=== PATIENT | male | born 1980 | race Caucasian/White ===

== ENCOUNTER 2017-10-08 16:15 | Inpatient (IN) | payer BC ==
[2017-10-08 19:41] LABS: ADD MAN DIFF? NO
[2017-10-08 19:45] LABS: BASOPHIL # 0.1 10^3/ul (0.0-0.1); BASOPHILS % 0.9 % (0.0-2.0); EOSINOPHILS # 0.1 10^3/ul (0.0-0.5); EOSINOPHILS % 1.4 % (0.0-7.0); HEMATOCRIT 44.5 % (42.0-52.0); LYMPHOCYTES # 2.2 10^3/ul (0.8-2.9); LYMPHOCYTES % 25.9 % (15.0-51.0); MEAN CORPUSCULAR HEMOGLOBIN 30.8 pg (29.0-33.0); MEAN CORPUSCULAR HGB CONC 33.7 g/dl (32.0-37.0); MEAN CORPUSCULAR VOLUME 91.4 fl (82.0-101.0); MEAN PLATELET VOLUME 9.5 fl (7.4-10.4); MONOCYTE # 0.4 10^3/ul (0.3-0.9); MONOCYTES % 4.9 % (0.0-11.0); NEUTROPHIL # 5.7 10^3/ul (1.6-7.5); NEUTROPHILS % 66.7 % (39.0-77.0); PLATELET COUNT 257 10^3/UL (140-415); RED BLOOD COUNT 4.87 10^6/ul (4.70-6.10); RED CELL DISTRIBUTION WIDTH 13.1 % (11.5-14.5)
[2017-10-08 19:45] LABS: WHITE BLOOD COUNT 8.6 10^3/ul (4.8-10.8)
[2017-10-08] MEDS: morphine 4 MG/ML VIAL IV (19:56)
[2017-10-08] MEDS: ONDANSETRON 4 MG INJ IV (19:56)
[2017-10-08 20:05] LABS: ALANINE AMINOTRANSFERASE 72 IU/L (13-69); ALBUMIN 4.7 g/dl (3.3-4.9); ALBUMIN/GLOBULIN RATIO 1.23; ALKALINE PHOSPHATASE 97 IU/L (42-121); ANION GAP 17 (8-16); ASPARTATE AMINO TRANSFERASE 75 IU/L (15-46); BILIRUBIN,INDIRECT 0.4 mg/dl (0-1.1); BILIRUBIN,TOTAL 0.4 mg/dl (0.2-1.3); BLOOD UREA NITROGEN 19 mg/dl (7-20); CALCIUM 9.4 mg/dl (8.4-10.2); CARBON DIOXIDE 26 mmol/L (21-31); CHLORIDE 103 mmol/L (97-110); CREATININE 0.78 mg/dl (0.61-1.24); GLUCOSE 105 mg/dl (70-220); INR 0.97; POTASSIUM 4.1 mmol/L (3.5-5.1); SODIUM 142 mmol/L (135-144); TOTAL PROTEIN 8.5 g/dl (6.1-8.1)
[2017-10-08 20:06] LABS: PARTIAL THROMBOPLASTIN TIME 28.1 Sec (25.0-35.0)
[2017-10-08] MEDS ORDERED: ONDANSETRON 4 MG INJ IV (22:30)
[2017-10-08 23:07] LABS: CREATINE KINASE 628 IU/L (23-200)
[2017-10-08 23:20] LABS: CK INDEX 0.7
[2017-10-08 23:26] LABS: CK-MB 4.46 ng/ml (0.0-2.4); TROPONIN-I < 0.012 ng/ml (0.000-0.120)
[2017-10-09] MEDS: HYDROCODONE/APAP (10/325) TAB PO (00:06)
[2017-10-09] MEDS: morphine 2 MG INJ IV ×3 (01:18→12:08)
[2017-10-09 05:35] LABS: ADD MAN DIFF? NO
[2017-10-09 05:43] LABS: WHITE BLOOD COUNT 8.2 10^3/ul (4.8-10.8)
[2017-10-09 05:43] LABS: BASOPHIL # 0.1 10^3/ul (0.0-0.1); BASOPHILS % 1.2 % (0.0-2.0); EOSINOPHILS # 0.3 10^3/ul (0.0-0.5); EOSINOPHILS % 3.1 % (0.0-7.0); HEMATOCRIT 44.4 % (42.0-52.0); HEMOGLOBIN 14.5 g/dl (14.0-18.0); LYMPHOCYTES # 3.6 10^3/ul (0.8-2.9); LYMPHOCYTES % 43.6 % (15.0-51.0); MEAN CORPUSCULAR HGB CONC 32.7 g/dl (32.0-37.0); MEAN CORPUSCULAR VOLUME 94.9 fl (82.0-101.0); MEAN PLATELET VOLUME 9.8 fl (7.4-10.4); MONOCYTE # 0.7 10^3/ul (0.3-0.9); MONOCYTES % 8.4 % (0.0-11.0); NEUTROPHIL # 3.5 10^3/ul (1.6-7.5); NEUTROPHILS % 43.3 % (39.0-77.0); PLATELET COUNT 249 10^3/UL (140-415); RED BLOOD COUNT 4.68 10^6/ul (4.70-6.10); RED CELL DISTRIBUTION WIDTH 13.2 % (11.5-14.5)
[2017-10-09 06:08] LABS: ANION GAP 15 (8-16); BLOOD UREA NITROGEN 19 mg/dl (7-20); CALCIUM 9.6 mg/dl (8.4-10.2); CARBON DIOXIDE 29 mmol/L (21-31); CHLORIDE 104 mmol/L (97-110); CREATININE 0.79 mg/dl (0.61-1.24); GLUCOSE 94 mg/dl (70-220); MAGNESIUM 2.5 mg/dl (1.7-2.5); PHOSPHORUS 4.4 mg/dl (2.5-4.9); POTASSIUM 4.6 mmol/L (3.5-5.1); SODIUM 143 mmol/L (135-144)
[2017-10-09] MEDS ORDERED: SUCCINYLCHOLINE CHLORIDE 100 MG/5 ML SYG IV (07:00)
[2017-10-09] MEDS ORDERED: ROCURONIUM 50 MG INJ (07:00)
[2017-10-09] MEDS: DEXTROSE 5%-0.45% NACL 1,000 ML IV ×2 (09:03→18:00)
[2017-10-09] MEDS ORDERED: morphine LIQ (10 MG/5 ML) CUP PO (16:30)
[2017-10-09] MEDS ORDERED: ROPIVACAINE 0.5 % 30 ML VIAL (21:02)
[2017-10-09] MEDS ORDERED: LIDOCAINE 2% (SDV) 5 ML INJ (21:12)
[2017-10-09] MEDS ORDERED: PROPOFOL 20 ML (21:12)
[2017-10-09] MEDS ORDERED: MIDAZOLAM 1 MG/ML 2 ML INJ ×2 (21:13→21:31)
[2017-10-09] MEDS ORDERED: FENTAnyl 50 MCG/ML VIAL (21:13)
[2017-10-09] MEDS ORDERED: CEFAZOLIN 1 GM INJ (21:37)
[2017-10-09] MEDS ORDERED: DEXAMETHASONE 4 MG/ML 1 ML INJ (21:44)
[2017-10-09] MEDS ORDERED: ONDANSETRON 4 MG INJ (21:44)
[2017-10-09] MEDS ORDERED: FAMOTIDINE 20 MG INJ (21:44)
[2017-10-09] MEDS: POLYMYXIN/BACITRACIN 1L IRRIG (21:49)
[2017-10-09] MEDS: ROPIVACAINE 0.5 % 30 ML VIAL (22:16)
[2017-10-09] MEDS ORDERED: SUGAMMADEX SODIUM 200 MG/2 ML VIAL IV (22:24)
[2017-10-09] MEDS ORDERED: HYDROmorphONE 2 MG/ML SYG (22:29)
[2017-10-09] MEDS: NEOMYC/POLYMYX/BACIT 30 GM OINT (22:43)
[2017-10-09] MEDS ORDERED: HYDROmorphONE (0.2 MG/ML) 10ML SYG IV ×2 (23:00)
[2017-10-09] MEDS ORDERED: MAGNESIUM HYDROXIDE 30ML CUP PO (23:00)
[2017-10-09] MEDS ORDERED: PROCHLORPERAZINE 10 MG INJ IV (23:00)
[2017-10-09] MEDS ORDERED: DIPHENHYDRAMINE 25 MG CAP PO (23:00)
[2017-10-09] MEDS ORDERED: ONDANSETRON 4 MG INJ IV ×2 (23:00)
[2017-10-09] MEDS ORDERED: DIPHENHYDRAMINE 50 MG INJ IV (23:00)
[2017-10-09] MEDS ORDERED: MEPERIDINE 25 MG INJ IV (23:00)
[2017-10-09] MEDS ORDERED: LABETALOL HCL 20MG INJ IV (23:00)
[2017-10-09] MEDS ORDERED: hydrALAzine 20 MG INJ IV (23:00)
[2017-10-09] MEDS ORDERED: CEFAZOLIN 1 GM INJ IV (23:00)
[2017-10-09] MEDS ORDERED: FENTAnyl 50 MCG/ML VIAL IV ×3 (23:00)
[2017-10-09] MEDS: HYDROmorphONE (0.2 MG/ML) 10ML SYG IV (23:21)
[2017-10-10] MEDS: PREGABALIN 75 MG CAP PO ×3 (00:54→21:06)
[2017-10-10] MEDS: SOD CHLORIDE 0.9% 1,000 ML IV ×3 (01:37→14:25)
[2017-10-10] MEDS: morphine 10 MG INJ IV ×2 (01:42→07:29)
[2017-10-10] MEDS: DEXTROSE 5%-0.45% NACL 1,000 ML IV ×2 (04:00→08:49)
[2017-10-10] MEDS: oxyCODONE 5 MG TAB PO ×4 (04:23→18:22)
[2017-10-10 05:28] LABS: ADD MAN DIFF? NO
[2017-10-10 05:31] LABS: WHITE BLOOD COUNT 9.4 10^3/ul (4.8-10.8)
[2017-10-10 05:31] LABS: BASOPHILS % 0.4 % (0.0-2.0); HEMATOCRIT 43.3 % (42.0-52.0); HEMOGLOBIN 14.5 g/dl (14.0-18.0); LYMPHOCYTES # 0.8 10^3/ul (0.8-2.9); LYMPHOCYTES % 8.2 % (15.0-51.0); MEAN CORPUSCULAR HEMOGLOBIN 31.1 pg (29.0-33.0); MEAN CORPUSCULAR HGB CONC 33.5 g/dl (32.0-37.0); MEAN CORPUSCULAR VOLUME 92.9 fl (82.0-101.0); MEAN PLATELET VOLUME 10.1 fl (7.4-10.4); MONOCYTE # 0.2 10^3/ul (0.3-0.9); MONOCYTES % 1.6 % (0.0-11.0); NEUTROPHIL # 8.4 10^3/ul (1.6-7.5); NEUTROPHILS % 89.4 % (39.0-77.0); PLATELET COUNT 249 10^3/UL (140-415); RED BLOOD COUNT 4.66 10^6/ul (4.70-6.10); RED CELL DISTRIBUTION WIDTH 13.2 % (11.5-14.5)
[2017-10-10] MEDS: CEFAZOLIN 1 GM/50 ML (PMX) 50 ML IVPB ×2 (05:48→14:25)
[2017-10-10 05:52] LABS: CREATINE KINASE 372 IU/L (23-200)
[2017-10-10 06:03] LABS: ALANINE AMINOTRANSFERASE 68 IU/L (13-69); ALBUMIN/GLOBULIN RATIO 1.21; ALKALINE PHOSPHATASE 84 IU/L (42-121); ANION GAP 18 (8-16); ASPARTATE AMINO TRANSFERASE 58 IU/L (15-46); BILIRUBIN,INDIRECT 0.2 mg/dl (0-1.1); BILIRUBIN,TOTAL 0.2 mg/dl (0.2-1.3); BLOOD UREA NITROGEN 14 mg/dl (7-20); CALCIUM 9.5 mg/dl (8.4-10.2); CARBON DIOXIDE 28 mmol/L (21-31); CHLORIDE 103 mmol/L (97-110); CREATININE 0.85 mg/dl (0.61-1.24); GLUCOSE 128 mg/dl (70-220); POTASSIUM 4.6 mmol/L (3.5-5.1); SODIUM 144 mmol/L (135-144); TOTAL PROTEIN 7.3 g/dl (6.1-8.1)
[2017-10-10 06:07] LABS: CK-MB 2.58 ng/ml (0.0-2.4)
[2017-10-10 07:58] LABS: ADD UMIC NO; UR ASCORBIC ACID NEGATIVE (NEGATIVE); UR BILIRUBIN (Dip) NEGATIVE (NEGATIVE); UR BLOOD (Dip) NEGATIVE (NEGATIVE); UR CLARITY CLEAR (CLEAR); UR COLOR YELLOW (YELLOW); UR GLUCOSE (Dip) NEGATIVE (NEGATIVE); UR KETONES (Dip) TRACE mg/dL (NEGATIVE); UR LEUKOCYTE ESTERASE (Dip) NEGATIVE Leu/ul (NEGATIVE); UR NITRITE (Dip) NEGATIVE (NEGATIVE); UR SPECIFIC GRAVITY (Dip) 1.011 (1.003-1.030); UR TOTAL PROTEIN (Dip) NEGATIVE (NEGATIVE); UR UROBILINOGEN (Dip) NEGATIVE (NEGATIVE)
[2017-10-10] MEDS: CHOLECALCIFEROL 2,000 UNIT CAP PO (08:48)
[2017-10-10] MEDS: BUPROPION (XL) 150 MG TAB PO (08:48)
[2017-10-10] MEDS: ASCORBIC ACID 500 MG TAB PO (08:49)
[2017-10-10] MEDS: MULTIVITAMINS/MINERALS TAB PO (08:49)
[2017-10-10] MEDS: SENNA/DOCUSATE NA (8.6MG/50MG) TAB PO ×2 (08:49→21:06)
[2017-10-10] MEDS: CYANOCOBALAMIN 1000 MCG INJ IM (08:49)
[2017-10-10] MEDS: LORAZEPAM 1 MG TAB PO (11:53)
[2017-10-10] MEDS: NICOTINE (21 MG/24 HR) PATCH TRANSDERM (11:53)
[2017-10-11] MEDS ORDERED: MAGNESIUM HYDROXIDE 30ML CUP PO (21:00)
== END 2017-10-10 22:15 | disposition home or self-care (01) | DRG 494 ==
LOC: E/R 16:15 → MS1 18:53
PROC: 0QSH04Z Reposition Left Tibia with Internal Fixation Device, Open Approach (ICD-10-PCS; principal; 2017-10-09 17:30)
DX: S82.52XA Displaced fracture of medial malleolus of left tibia, initial encounter for closed fracture (principal); M60.9 Myositis, unspecified; F17.210 Nicotine dependence, cigarettes, uncomplicated; X58.XXXA Exposure to other specified factors, initial encounter
CPT/HCPCS: 71045; 73600-LT; 80048; 80053; 81003; 82306; 82550; 82553; 83735; 84100; 84484; 85025; 85610; 85730; 93005; 96374; 96375; 97116; 97161; 97530; 99285-25